=== PATIENT | male | born 1970 | race Caucasian/White ===

== ENCOUNTER 2016-12-14 06:01 | Emergency (ER) | payer BC ==
[~2016-12-14] VITALS: Ht 175.3 cm; Wt 82.4 kg
[2016-12-14] MEDS ORDERED: SODIUM CHLORIDE FLUSH 3 ML SYR IV ONE (06:20)
[2016-12-14] MEDS ORDERED: SODIUM CHLORIDE FLUSH 10 ML SYR IV PRN (06:20)
[2016-12-14 06:22] LABS: BASOPHILS % (AUTO) 1 % (0-2); EOSINOPHILS # (AUTO) 0.2 10^3uL; EOSINOPHILS % (AUTO) 3 % (0-4); LYMPHOCYTES # (AUTO) 3.3 X10^3; MEAN CORPUSCULAR VOLUME 90 FL (80-100); MEAN PLATELET VOLUME 10.2 FL (6.0-9.5); MONOCYTES # (AUTO) 0.7 X10^3; MONOCYTES % (AUTO) 8 % (3-11); NEUTROPHILS # (AUTO) 3.9 X10^3; NEUTROPHILS % (AUTO) 47 % (51-67); PLATELET COUNT 127 10^3uL (150-450); WHITE BLOOD COUNT 8.27 10^3uL (4.0-11.0)
[2016-12-14 06:47] LABS: MEAN CORPUSCULAR HEMOGLOBIN 32.8 PG (26.0-34.0); MEAN CORPUSCULAR HGB CONC 36.4 g/dL (31.0-37.0)
[2016-12-14 06:54] LABS: ALBUMIN 3.7 g/dL (3.4-5.0); ALKALINE PHOSPHATASE 96 U/L (38-126); ANION GAP 14.4 MEQ/L (3-15); BUN/CREATININE RATIO 11 (10-20); CREATINE KINASE 72 U/L (55-170); LIPASE* 122 U/L (23-300); TOTAL PROTEIN 6.4 g/dL (6.4-8.5)
--- NOTE | 2016-12-14 07:00 | NUR ---
REPORT GIVEN TO SELENE Smith AND SHE ACCEPTED CARE OF PT.
--- NOTE | 2016-12-14 07:16 | NUR ---
& FEMALE VISITOR AT BEDSIDE. CL
[2016-12-14] MEDS ORDERED: NITROGLYCERIN SUBLINGUAL 0.4 MG (NITROQUICK) TABLET SL PRN (08:05)
--- NOTE | 2016-12-14 08:14 | NUR ---
PT STATES HE IS NOW DIZZY. DR ROTH AT BEDSIDE WHEN PT STATES THIS. DR ROTH ORDERS O2 INCREASED TO 7L/NC. SAME DONE. CL
--- NOTE | 2016-12-14 08:15 | NUR ---
DR ROTH VERBAL ORDERS PT TO HAVE ONLY 1/2 OF THE NITRO ORDERED. SAME GIVEN. CL
--- NOTE | 2016-12-14 08:22 | NUR ---
CALLING VIA [facility] RE POSS TRANSFER TO THEM. CL
--- NOTE | 2016-12-14 08:26 | NUR ---
HOSPITALIST AT [facility] PAGED PER DR ROTH
--- NOTE | 2016-12-14 08:30 | NUR ---
PT CONT TO DENY URGE TO VOID AT THIS TIME. CL
--- NOTE | 2016-12-14 08:43 | NUR ---
DR ROTH IS SPEAKING WITH THE HOSPITALIST AT [facility]
[2016-12-14] MEDS ORDERED: HEPARIN 1000 UNIT/ML 2 ML VIAL IV ONE ×2 (08:45→09:30)
[2016-12-14] MEDS ORDERED: HEPARIN DRIP 25000 UNIT/250 ML 250 ML IV ONE (09:30)
--- NOTE | 2016-12-14 09:37 | NUR ---
[facility] CALLED BACK TO CANCEL BED WAIT PER DR ROTH
--- NOTE | 2016-12-14 09:52 | NUR ---
ATTEMPTED TO CALL REPORT TO BETTE AT [facility]. THIS RN IS ASKED TO CALL BACK IN 5 MIN. CL
--- NOTE | 2016-12-14 09:54 | NUR ---
pt vervalizes that he is still unable to void at this time. cl
[2016-12-14 10:12] VITALS: BP 98/66
--- NOTE | 2016-12-14 10:16 | NUR ---
PT TOOK HIS BELONGINGS & GLASSES WITH HER. CL
== END 2016-12-14 10:34 | disposition short-term general hospital (02) ==
LOC: ED 06:03
DX: I26.99 Other pulmonary embolism without acute cor pulmonale (principal); R55 Syncope and collapse; R94.31 Abnormal electrocardiogram [ECG] [EKG]
CPT/HCPCS: 36415; 70450; 71010; 71275; 80053; 80320; 82550; 82553; 83690; 83880; 84443; 84484; 85025; 85379; 85610; 86140; 93005; 96361; 96374; 96375; 99291; J1644; J7030; Q9967; 93010; 99285

== ENCOUNTER → 2016-12-14 | Outpatient (CLI) | payer BC | LOC: EMS 05:41 | PROVIDERS: ATTEND Family Medicine | DX: I26.99 Other pulmonary embolism without acute cor pulmonale (principal); R06.02 Shortness of breath ==